=== PATIENT | female | born 1990 | race Hispanic/Latino ===

== ENCOUNTER → 2019-08-20 | Outpatient (CLI) | payer OTHER | LOC: LAB.O 08:28 | PROVIDERS: ATTEND Obstetrics & Gynecology | DX: R73.01 Impaired fasting glucose (principal) ==

== ENCOUNTER → 2020-04-07 | Outpatient (CLI) | payer OTHER | LOC: GMALS 14:30 | PROVIDERS: ATTEND Nurse Practitioner Acute Care | DX: E11.9 Type 2 diabetes mellitus without complications (principal) ==